=== PATIENT | male | born 2000 | race Caucasian/White ===

== ENCOUNTER 2018-01-21 15:57 | Emergency (ER) | payer OTHER ==
[~2018-01-21] VITALS: Ht 188 cm; Wt 68.2 kg
[2018-01-21 16:07] VITALS: BP 139/88; PULSE 67; TEMP 36.8; O2SAT 98; Ht 188 cm; Wt 68.2 kg
--- NOTE | 2018-01-21 16:46 | DIAGNOSTIC IMAGING REPORT ---
L FOOT MIN 3 VIEWS ROUTINE CLINICAL HISTORY: 17 years-old Male presenting with left foot injury while playing basketball. TECHNIQUE: Frontal, oblique, and lateral views of the left foot were obtained. COMPARISON: None. FINDINGS: No acute fracture or malalignment. No advanced degenerative change. No radiographic soft tissue abnormality. IMPRESSION: No acute osseous injury. Electronically signed by: Ranjan Sandoval M.D. 01/21/2018 4:45 PM Dictated Date/Time: 01/21/2018 4:44 PM
--- NOTE | 2018-01-21 16:47 | DIAGNOSTIC IMAGING REPORT ---
L ANKLE MIN 3 VIEWS ROUTINE CLINICAL HISTORY: 17 years-old Male presenting with L foot and ankle injury playing basketball. TECHNIQUE: Frontal, mortise, and lateral views of the left ankle were obtained. COMPARISON: None. FINDINGS: No acute fracture or malalignment. No advanced degenerative change. Minimal diffuse soft tissue swelling at the ankle. IMPRESSION: No acute osseous injury. Electronically signed by: Ranjan Sandoval M.D. 01/21/2018 4:46 PM Dictated Date/Time: 01/21/2018 4:45 PM
--- NOTE | 2018-01-21 18:17 | EMERGENCY ROOM VISIT NOTE ---
ED Visit Note First contact with patient: 16:08 Chief Complaint: Left ankle and foot pain. History of Present Illness: Mr. Toledo is a 17-year-old white male who ambulates into the ED complaining of left ankle and foot pain. Historically patient denies any significant previous ankle or foot injuries/ surgeries. Patient reports 2 days ago he was playing basketball. He reports he went up to shoot the ball and when he came down he landed on the lateral aspect of the foot over the fifth metacarpal and then rolled his ankle. Shortly after this event he started experiencing medial ankle pain. Over the last 2 days he reports he has been having increasing pain, increasing swelling and the development of ecchymosis in both these areas. Currently he describes his discomfort as a sharp sensation. He rates his discomfort 6/10. His pain is nonradiating. His pain worsens with palpation, inversion and ambulation. He has not identified any alleviating factors related to the pain. He has not taken medication for pain prior to arrival at the hospital. He denies any associated symptoms including hip pain, knee pain, lower leg pain, ankle/foot weakness/numbness/tingling. Review of Systems: As noted above in history of present illness. Past Medical History: Patient denies. Current Medications: Patient denies. Allergies to Medications: Patient denies Social History: Patient is currently university student; he feels safe in his home environment; he denies tobacco and alcohol use Physical Examination: Vital Signs: Date Time Temp Pulse Resp B/P (MAP) Pulse Ox O2 Delivery O2 Flow Rate FiO2 01/21/18 16:07 36.8 67 18 139/88 98 Room Air GENERAL: 17-year-old male in mild distress due to pain, nontoxic-appearing, afebrile and hemodynamically stable. NEUROLOGICAL: Awake, alert and oriented to person, place and time. Answering questions appropriately and following commands. Normal gait. SKIN: Warm, dry and pink. Left Ankle/Foot ecchymosis noted under the medial malleolus and lateral fifth metatarsal. LEFT LOWER EXTREMITY: No gross bony deformities. No tenderness in the knee or lower leg. Mild tenderness both under the medial malleolus in the area of his ecchymosis and over the lateral fifth metatarsal. I do not feel any bony deformities or crepitus. No laxity of the ankle ligamentous structures. Full range of motion in plantarflexion and dorsiflexion of the ankle. Minimal tenderness with inversion of the ankle. Full range of motion in flexion and extension of all the toes against resistance. Throughout the foot the skin was warm and pink and capillary refill is brisk. He is able to distinguish light sensations to all dermatomes of the foot and toes. ED Course: Patient is assessed as noted above. Patient's medication list was reviewed. Left Ankle X-Rays: Were read by myself and the radiologist showing no acute fractures or dislocations. Left Foot X-Rays: Were read by myself and the radiologist showing no acute fractures or dislocations. Patient was offered pain medication and refused. Patient was placed in a gel splint and non-weightbearing crutches. Patient was educated about today's findings and instructed on his treatment plan ; he verbalized agreement and understanding with this plan. Clinical Impression: Left ankle sprain. Left foot contusion. Disposition: Patient discharged home in stable condition; prior to departure he was reassessed and subjectively reported he was feeling better and rated his discomfort 3/10. Plan: Comfort measures were discussed with the patient including ibuprofen and acetaminophen use, ice, elevation, splint and crutch use. Patient is encouraged to follow-up with orthopedics if no better in 6-7 days. Patient was encouraged return the ED for worsening/uncontrolled pain, uncontrolled swelling, foot weakness/numbness/tingling or any new/concerning symptoms.
== END 2018-01-21 17:40 | disposition home or self-care (01) ==
LOC: C.EDB 15:58 → C.EDD 17:40
DX: X50.9XXA Other and unspecified overexertion or strenuous movements or postures, initial encounter (principal); S93.402A Sprain of unspecified ligament of left ankle, initial encounter; S90.32XA Contusion of left foot, initial encounter